=== PATIENT | female | born 1990 | race Asian ===

== ENCOUNTER 2017-10-11 11:59 | Day surgery (SDC) | payer BC ==
--- NOTE | 2017-10-11 14:01 | NUR ---
LE 1215 PT ARRIVED AMB FOR OP BX. NOTIFIED PT AND SPOUSE OF WAIT. LEFT DEPT, WILL RETURN AT 1300. 1330 RETURNED TO DEPT. CONSENT SIGNED. IN ROOM. VITAL SIGNS TAKEN. PROCEDURE STARTED. 1345 PROCEDURE COMPLETED. PT GETTING DRESSED. 1350 LEFT VIA W/C.
--- NOTE | 2017-10-11 19:42 | OR ---
[facility] [address], [place] [address] Signed DATE OF OPERATION: 10/11/2017 SURGEON: Kiel Moreira MD PREOPERATIVE DIAGNOSIS: Left medial breast mass, BI-RADS category 4 by mammogram. POSTOPERATIVE DIAGNOSIS: Left medial breast mass, BI-RADS category 4 by mammogram. PROCEDURE: Biopty gun biopsy of left medial breast mass. SURGEON: Kiel Moreira MD ANESTHESIA: 1% lidocaine with epinephrine. INDICATION: This 27-year-old [place]ian woman is a patient of Dr. Av Madrigal, who was found to have a subtle mass in the left medial breast about 2 cm from the areolar margin. Imaging study confirmed the lesion to be considered BI-RADS category 4. She has no family history of breast cancer that she is aware of. She is here for a core biopsy by Biopty gun technique to better characterize the mass, anticipating possible definitive therapy of cancers noted and other approaches if benign. The risks of bleeding, infection, cosmetic deformity, so forth reviewed with her, she understands and wished to proceed. FINDINGS: The mass was rather subtle. It was pointed out to me by her. It was 1 inch medial to the areolar margin on the left side. Five core biopsies were obtained of the area. DESCRIPTION OF PROCEDURE: In the supine position, the left breast was prepared with a chlorhexidine solution and draped sterilely. A 1% lidocaine with epinephrine was injected locally. The palpable area had been marked and made with an impression with a blunt object. The tip of an 11 blade was used to incise the skin. Satisfactory anesthesia was noted. Using a Biopty gun biopsy with 14-gauge needle, 5 separate core biopsies were taken of the area. All were put on Telfa and placed in preservative. There was no untoward bleeding. A Electronically Signed By: KIEL MOREIRA MD 10/11/171941 PATIENT NAME: ANA DELA CRUZ OPERATIVE REPORT DATE OF : 89 PHYSICIAN: KIEL MOREIRA MD REPORT #: [id number] REPORT IS CONFIDENTIAL AND NOT TO BE RELEASED WITHOUT AUTHORIZATION [address] [address] Signed Band-Aid was applied. The patient tolerated procedure well. Kiel Moreira MD JM/MODL /[id number] cc: Av Madrigal MD Electronically Signed By: KIEL MOREIRA MD 10/11/17 1942 PATIENT NAME: ANA DELA CRUZ OPERATIVE REPORT DATE OF : 89 PHYSICIAN: KIEL MOREIRA MD REPORT #: [id number] REPORT IS CONFIDENTIAL AND NOT TO BE RELEASED WITHOUT AUTHORIZATION
== END 2017-10-11 13:55 | disposition home or self-care (01) ==
LOC: OPS 11:59 → DS 11:59 → EDSTATUS 12:45 → OPS 12:45
PROC: 0HBU3ZX Excision of Left Breast, Percutaneous Approach, Diagnostic (ICD-10-PCS; principal; 2017-10-11)
DX: D24.2 Benign neoplasm of left breast (principal)